=== PATIENT | male | born 1945 | race Caucasian/White ===

== ENCOUNTER 2019-04-11 09:38 | Emergency (ER) | payer MEDICARE ==
[~2019-04-11] VITALS: Ht 177.8 cm; Wt 101.7 kg
[~2019-04-11 09:38] MED LIST: ASPI81TA52 PO; CHOL200035 PO; HYDR12.522 PO; IBUP-1984 PO; METH-603 PO; METO50TA16 PO; NOR5T PO; NORCO10T PO; SIMV-42 PO; TRAM50TA2 PO
[2019-04-11 10:49] LABS: HEMATOCRIT 47.2 % (42.0-52.0); HEMOGLOBIN 15.1 g/dl (14.0-17.9); MEAN CORPUSCULAR HEMOGLOBIN 27.1 PG (27.0-31.0); MEAN CORPUSCULAR HGB CONC 32.1 g/dL (33.0-36.5); MEAN CORPUSCULAR VOLUME 84.4 FL (78-98); PLATELET COUNT 233 X10'3 (140-440); RED CELL DISTRIBUTION WIDTH 16.5 % (11.5-14.5); WHITE BLOOD COUNT 5.1 X10'3 (4.5-11.0)
[2019-04-11 10:50] LABS: BASOPHILS % (AUTO) 0.7 % (0-1); EOSINOPHILS % (AUTO) 0.4 % (0-6); LYMPHOCYTES # (AUTO) 0.5 X10'3 (1.1-4.8); LYMPHOCYTES % (AUTO) 9.3 % (21-51); MEAN PLATELET VOLUME 8.5 FL (7.4-10.4); MONOCYTES # (AUTO) 0.5 X10'3 (0-0.9); MONOCYTES % (AUTO) 10.3 % (2-12); NEUTROPHILS % (AUTO) 79.3 % (42-75)
[2019-04-11 10:52] LABS: ALANINE AMINOTRANSFERASE 27 U/L (12-78); ALBUMIN 3.6 G/DL (3.4-5.0); ALKALINE PHOSPHATASE 83 IU/L (46-116); ANION GAP 8 (8-16); ASPARTATE AMINO TRANSFERASE 25 U/L (10-37); BLOOD UREA NITROGEN 21 MG/DL (7-18); CALCIUM 8.6 MG/DL (8.5-10.1); CHLORIDE 96 MMOL/L (99-107); CREATININE 1.31 MG/DL (0.60-1.10); GLUCOSE 100 MG/DL (70-104); POTASSIUM 3.6 MMOL/L (3.5-5.1); SODIUM 132 MMOL/L (135-145); TOTAL PROTEIN 7.2 G/DL (6.4-8.2); eGFR 53 ML/MIN
[2019-04-11] MEDS ORDERED: furosemide 10 MG/1 ML 10ml inj IV ONE (11:50)
[2019-04-11] MEDS ORDERED: FURO80TA87 PO (11:55)
[2019-04-11 12:31] VITALS: BP 156/92
--- NOTE | 2019-04-11 12:39 | NUR ---
Pt refusing admit to hospital. Dr. Mederos at bedside discussing POC and DC for pt.
== END 2019-04-11 13:01 | disposition home or self-care (01) ==
LOC: ER 09:40
DX: I11.0 Hypertensive heart disease with heart failure (principal); I50.23 Acute on chronic systolic (congestive) heart failure; G89.29 Other chronic pain; Z95.1 Presence of aortocoronary bypass graft; Z98.890 Other specified postprocedural states; Z88.8 Allergy status to other drugs, medicaments and biological substances; Z79.82 Long term (current) use of aspirin; Z79.899 Other long term (current) drug therapy
CPT/HCPCS: 36415; 71045; 80053; 84484; 85025; 93005; 96374; 99284; J1940

== ENCOUNTER 2019-05-29 14:14 | Inpatient (IN) | payer MEDICARE, OTHER ==
[~2019-05-29] VITALS: Ht 175.3 cm; Wt 95.6 kg
[2019-05-29 15:03] LABS: BASOPHILS % (AUTO) 0.7 % (0-1); EOSINOPHILS % (AUTO) 0.7 % (0-6); HEMATOCRIT 49.4 % (42.0-52.0); HEMOGLOBIN 15.5 g/dl (14.0-17.9); LYMPHOCYTES # (AUTO) 0.7 X10'3 (1.1-4.8); LYMPHOCYTES % (AUTO) 12.5 % (21-51); MEAN CORPUSCULAR HEMOGLOBIN 24.6 PG (27.0-31.0); MEAN CORPUSCULAR HGB CONC 31.4 g/dL (33.0-36.5); MEAN CORPUSCULAR VOLUME 78.3 FL (78-98); MEAN PLATELET VOLUME 8.6 FL (7.4-10.4); MONOCYTES # (AUTO) 0.7 X10'3 (0-0.9); MONOCYTES % (AUTO) 12.4 % (2-12); NEUTROPHILS # (AUTO) 4.1 X10'3 (1.8-7.7); NEUTROPHILS % (AUTO) 73.7 % (42-75); PLATELET COUNT 228 X10'3 (140-440); RED BLOOD COUNT 6.31 X10'6 (4.70-6.10); RED CELL DISTRIBUTION WIDTH 18.1 % (11.5-14.5); WHITE BLOOD COUNT 5.6 X10'3 (4.5-11.0)
[2019-05-29 15:19] LABS: ALANINE AMINOTRANSFERASE 15 U/L (12-78); ALBUMIN 3.5 G/DL (3.4-5.0); ALKALINE PHOSPHATASE 91 IU/L (46-116); ANION GAP 8 (8-16); ASPARTATE AMINO TRANSFERASE 18 U/L (10-37); BILIRUBIN,TOTAL 1.2 MG/DL (0.1-1.0); BLOOD UREA NITROGEN 42 MG/DL (7-18); BUN/CREATININE RATIO 23.3 (5.4-32.0); CALCIUM 8.9 MG/DL (8.5-10.1); CHLORIDE 99 MMOL/L (99-107); GLUCOSE 115 MG/DL (70-104); POTASSIUM 3.5 MMOL/L (3.5-5.1); SODIUM 139 MMOL/L (135-145); TOTAL CARBON DIOXIDE 31.9 MMOL/L (24-32); TOTAL PROTEIN 7.1 G/DL (6.4-8.2); eGFR 37 ML/MIN
[2019-05-29] MEDS ORDERED: normal saline 1000ml 1,000 ML IV SCH (16:16)
[2019-05-29] MEDS ORDERED: ondansetron/PF 4mg/2ml inj IV PRN (16:20)
[2019-05-29] MEDS ORDERED: HYDROcodone/acetaminophen 10/325mg tab PO PRN (16:20)
[2019-05-29] MEDS ORDERED: magnesium hydroxide 30ml (MOM) UD suspension PO PRN (16:20)
[2019-05-29] MEDS ORDERED: mag hydrox/Alum hydrox/simeth 30ml oral suspension PO PRN (16:20)
[2019-05-29] MEDS ORDERED: magnesium 2GM in 50ml NS 50 ML IV PRN (16:20)
[2019-05-29] MEDS ORDERED: bisacodyl 10mg suppository rectal RC PRN (16:20)
[2019-05-29] MEDS ORDERED: HYDROcodone/acetaminophen 5mg/325mg tablet PO PRN (16:20)
[2019-05-29] MEDS ORDERED: magnesium Cl slow-release 64mg tablet PO PRN (16:20)
[2019-05-29] MEDS ORDERED: acetaminophen 650mg rectal suppository RC PRN (16:20)
[2019-05-29] MEDS ORDERED: acetaminophen 325mg tablet PO PRN ×2 (16:20)
[2019-05-29] MEDS ORDERED: potassium Cl 20 mEq SR tablet PO PRN (16:20)
[2019-05-29] MEDS ORDERED: potassium CL 10mEq/100ml bag 100 ML IV PRN ×2 (16:20)
[2019-05-29] MEDS ORDERED: magnesium 4gm in 100ml NS 100 ML IV PRN (16:20)
[2019-05-29] MEDS ORDERED: morphine 2 MG/ML inj. syringe IV PRN ×2 (16:20)
[2019-05-29] MEDS ORDERED: furosemide 10 MG/1 ML 10ml inj IV ONE (16:25)
[2019-05-29] MEDS ORDERED: SIMV10TA98 PO (16:32)
[2019-05-29] MEDS ORDERED: FURO80TA3 PO (16:32)
[2019-05-29] MEDS: levoFLOXACIN-Levaquin 750MG/D5 150 ML IV SCH (17:23)
[2019-05-29 17:45] VITALS: BP 140/87
--- NOTE | 2019-05-29 18:15 | NUR ---
Patient in room PCU 3023. I have received report from Marah NARVAEZ and had the opportunity to ask questions and assume patient care.
[2019-05-29 18:16] LABS: HEMOGLOBIN A1C 5.8 % (4.5-6.2)
--- NOTE | 2019-05-29 18:39 | NUR ---
Patient in room PCU 3023 admitted from ED. I have received report from Suni NARVAEZ and had the opportunity to ask questions and assume patient care.
--- NOTE | 2019-05-29 18:40 | NUR ---
Problems reprioritized. Patient report given, questions answered & plan of care reviewed with Patt NARVAEZ.
[2019-05-29 19:00] VITALS: BP 107/59
[2019-05-29] MEDS: ipratropium/albuterol 3ml nebule NEB SCH ×2 (19:45→23:41)
[2019-05-29 20:00] VITALS: BP_SYST 107; BP_SYST 129; BP_SYST 146; BP_DIAS 100; BP_DIAS 59; BP_DIAS 79
[2019-05-29] MEDS: K and/or MAG REPLACEMENT MC SCH (20:00)
[2019-05-29] MEDS ORDERED: temazepam 15mg capsule PO PRN (21:00)
[2019-05-29] MEDS: heparin, porcine 5000 units/ml vial SQ SCH (22:23)
[2019-05-29] MEDS: furosemide 10 MG/1 ML 10ml inj IV SCH (22:24)
[2019-05-29] MEDS ORDERED: methylPREDNISolone sod succ 125mg/2ml vial IV ONE (22:40)
[2019-05-29 23:00] VITALS: BP 135/87
[2019-05-30] MEDS: methylPREDNISolone sod succ 125mg/2ml vial IV SCH ×4 (02:26→20:55)
[2019-05-30 02:56] LABS: BASOPHILS % (AUTO) 0.3 % (0-1); EOSINOPHILS % (AUTO) 0 % (0-6); HEMATOCRIT 48.8 % (42.0-52.0); HEMOGLOBIN 15.3 g/dl (14.0-17.9); LYMPHOCYTES # (AUTO) 0.2 X10'3 (1.1-4.8); LYMPHOCYTES % (AUTO) 4.7 % (21-51); MEAN CORPUSCULAR HEMOGLOBIN 24.2 PG (27.0-31.0); MEAN CORPUSCULAR HGB CONC 31.3 g/dL (33.0-36.5); MEAN CORPUSCULAR VOLUME 77.4 FL (78-98); MEAN PLATELET VOLUME 9.3 FL (7.4-10.4); MONOCYTES # (AUTO) 0.2 X10'3 (0-0.9); NEUTROPHILS # (AUTO) 4.6 X10'3 (1.8-7.7); PLATELET COUNT 200 X10'3 (140-440); RED BLOOD COUNT 6.31 X10'6 (4.70-6.10)
[2019-05-30 03:24] LABS: ALANINE AMINOTRANSFERASE 21 U/L (12-78); ALBUMIN 3.4 G/DL (3.4-5.0); ALBUMIN/GLOBULIN RATIO 0.9 (1.1-1.5); ALKALINE PHOSPHATASE 83 IU/L (46-116); ANION GAP 11 (8-16); ASPARTATE AMINO TRANSFERASE 19 U/L (10-37); BLOOD UREA NITROGEN 44 MG/DL (7-18); BUN/CREATININE RATIO 26.2 (5.4-32.0); CALCIUM 8.9 MG/DL (8.5-10.1); CHLORIDE 100 MMOL/L (99-107); CHOL/HDL RATIO 1.7 (0.00-4.99); CHOLESTEROL 142 MG/DL (0-200); CREATININE 1.68 MG/DL (0.60-1.10); GLUCOSE 129 MG/DL (70-104); HDL CHOLESTEROL 82 MG/DL (35-60); LDL CHOLESTEROL 53 MG/DL (50-100); MAGNESIUM 1.7 MG/DL (1.5-2.4); PHOSPHORUS 3.6 MG/DL (2.3-4.5); SODIUM 139 MMOL/L (135-145); TOTAL CARBON DIOXIDE 28.5 MMOL/L (24-32); TRIGLYCERIDES 33 MG/DL (20-135); eGFR 40 ML/MIN
[2019-05-30] MEDS: potassium Cl 20 mEq SR tablet PO PRN ×4 (03:30→20:47)
--- NOTE | 2019-05-30 03:31 | NUR ---
Received Critical K+ of 3.0 administering 40meq of potassium per protocol
[2019-05-30] MEDS: ipratropium/albuterol 3ml nebule NEB SCH ×6 (03:34→23:51)
[2019-05-30 06:00] VITALS: BP 146/84
--- NOTE | 2019-05-30 06:28 | NUR ---
Patient in room PCU 3023. I have received report from Patt NARVAEZ and had the opportunity to ask questions and assume patient care.
--- NOTE | 2019-05-30 06:29 | NUR ---
Problems reprioritized. Patient report given, questions answered & plan of care reviewed with Marah NARVAEZ.
[2019-05-30] MEDS: K and/or MAG REPLACEMENT MC SCH ×2 (08:00→20:00)
[2019-05-30] MEDS: heparin, porcine 5000 units/ml vial SQ SCH ×2 (08:05→20:45)
[2019-05-30] MEDS: levoFLOXACIN-Levaquin 750MG/D5 150 ML IV SCH (08:05)
[2019-05-30] MEDS: furosemide 10 MG/1 ML 10ml inj IV SCH ×2 (08:08→20:45)
[2019-05-30] MEDS ORDERED: LOSA1TAB41 PO (09:55)
[2019-05-30 11:00] VITALS: BP 129/71
[2019-05-30] MEDS: spironolactone 25 MG tablet PO SCH (11:28)
[2019-05-30] MEDS: losartan 50mg tablet PO SCH (11:29)
[2019-05-30 15:00] VITALS: BP 133/78
--- NOTE | 2019-05-30 18:23 | NUR ---
Problems reprioritized. Patient report given, questions answered & plan of care reviewed with Patt NARVAEZ.
[2019-05-30 19:00] VITALS: BP 136/76
[2019-05-30 23:00] VITALS: BP 134/69
[2019-05-31] MEDS: methylPREDNISolone sod succ 125mg/2ml vial IV SCH ×2 (02:30→07:58)
[2019-05-31] MEDS: ipratropium/albuterol 3ml nebule NEB SCH ×3 (03:00→11:00)
[2019-05-31 06:07] LABS: BASOPHILS % (AUTO) 0 % (0-1); EOSINOPHILS % (AUTO) 0 % (0-6); HEMATOCRIT 49.2 % (42.0-52.0); HEMOGLOBIN 15.6 g/dl (14.0-17.9); LYMPHOCYTES # (AUTO) 0.2 X10'3 (1.1-4.8); LYMPHOCYTES % (AUTO) 1.6 % (21-51); MEAN CORPUSCULAR HEMOGLOBIN 24.3 PG (27.0-31.0); MEAN CORPUSCULAR HGB CONC 31.6 g/dL (33.0-36.5); MEAN PLATELET VOLUME 9.5 FL (7.4-10.4); MONOCYTES # (AUTO) 0.4 X10'3 (0-0.9); MONOCYTES % (AUTO) 3.1 % (2-12); NEUTROPHILS # (AUTO) 12.8 X10'3 (1.8-7.7); NEUTROPHILS % (AUTO) 95.3 % (42-75); PLATELET COUNT 205 X10'3 (140-440); RED BLOOD COUNT 6.39 X10'6 (4.70-6.10); RED CELL DISTRIBUTION WIDTH 18.3 % (11.5-14.5); WHITE BLOOD COUNT 13.4 X10'3 (4.5-11.0)
--- NOTE | 2019-05-31 06:39 | NUR ---
Problems reprioritized. Patient report given, questions answered & plan of care reviewed with Kath NARVAEZ.
[2019-05-31 06:51] LABS: ALANINE AMINOTRANSFERASE 21 U/L (12-78); ALBUMIN 3.6 G/DL (3.4-5.0); ALKALINE PHOSPHATASE 78 IU/L (46-116); ANION GAP 14 (8-16); ASPARTATE AMINO TRANSFERASE 21 U/L (10-37); BLOOD UREA NITROGEN 50 MG/DL (7-18); BUN/CREATININE RATIO 26.9 (5.4-32.0); CALCIUM 9.3 MG/DL (8.5-10.1); CHLORIDE 100 MMOL/L (99-107); CREATININE 1.86 MG/DL (0.60-1.10); GLUCOSE 145 MG/DL (70-104); MAGNESIUM 1.8 MG/DL (1.5-2.4); PHOSPHORUS 3.4 MG/DL (2.3-4.5); SODIUM 138 MMOL/L (135-145); TOTAL CARBON DIOXIDE 23.6 MMOL/L (24-32); TOTAL PROTEIN 7.2 G/DL (6.4-8.2); eGFR 35 ML/MIN
[2019-05-31 07:00] VITALS: BP 140/77
[2019-05-31] MEDS: losartan 50mg tablet PO SCH (07:58)
[2019-05-31] MEDS: spironolactone 25 MG tablet PO SCH (07:58)
[2019-05-31] MEDS: furosemide 10 MG/1 ML 10ml inj IV SCH (07:58)
[2019-05-31] MEDS: levoFLOXACIN-Levaquin 750MG/D5 150 ML IV SCH (07:58)
[2019-05-31] MEDS: heparin, porcine 5000 units/ml vial SQ SCH (07:59)
[2019-05-31] MEDS: K and/or MAG REPLACEMENT MC SCH (08:00)
[2019-05-31] MEDS ORDERED: ALBU8.5H8 INH (09:51)
[2019-05-31] MEDS ORDERED: LOSA50TA64 PO (09:51)
[2019-05-31] MEDS ORDERED: FURO-150 PO (09:51)
[2019-05-31] MEDS ORDERED: SPIR25TA PO (09:51)
[2019-05-31] MEDS ORDERED: PRED10TA23 PO (09:51)
[2019-05-31] MEDS ORDERED: LEVO500T89 PO (09:51)
[2019-05-31] MEDS ORDERED: CARV3.12 PO (09:52)
[2019-05-31 11:00] VITALS: BP 163/77
--- NOTE | 2019-05-31 12:37 | NUR ---
Patient was discharged home with . Patient reviewed packet before signing and being sent home with patient. All other belongings sent home with patient, telemetry monitoring removed, PIV d/c'd with cannula intact,Rx were faxed to pharmacy. Patient stable upon discharge, and wheeled down by staff, left via private vehicle. Addendum: 05/31/19 at 1242 by Kath Loera RN Patient has scheduled Dr. wooten with Dr. Salmon for CHF on 06/04/19
--- NOTE | 2019-06-02 08:45 | NUR ---
Case management DC follow up: spoke to pt & pt spouse. report pt,"doing fine", "feeling better. No wheezing and no cough" ,"able to sleep". Denies emergent SOB, resp distress, cp, acute general pain, BLE pain (existing edema/denies worsening), denies NV, CULP, dizziness. verbalizes understanding of meds and why prescribed, taking as ordered, no ase noted r/t polypharmacy. acknowledges follow up appt w/Dr Salmon 06/04/2019/1115. pt is compliant at this time w/fluid restriction. Advised to elevate BLE whenever possible, verbalizes understanding, activity as tolerated. PCP/aldo will call back w/appt date. verbalizes understanding of s/s that would warrant -/ER visit for evaluation. needs met, questions answered at DC. no further questions at this time.
== END 2019-05-31 12:35 | disposition home or self-care (01) | DRG 291 ==
LOC: ER 14:14 → ED HOLD 16:16 → EDBEDREQ 16:53 → PCU 3S 17:50
PROVIDERS: ADMIT Family Medicine; ATTEND Family Medicine
DX: I13.0 Hypertensive heart and chronic kidney disease with heart failure and stage 1 through stage 4 chronic kidney disease, or unspecified chronic kidney disease (principal); I50.21 Acute systolic (congestive) heart failure; J18.9 Pneumonia, unspecified organism; J96.90 Respiratory failure, unspecified, unspecified whether with hypoxia or hypercapnia; J44.0 Chronic obstructive pulmonary disease with (acute) lower respiratory infection; J44.1 Chronic obstructive pulmonary disease with (acute) exacerbation; E78.5 Hyperlipidemia, unspecified; I42.6 Alcoholic cardiomyopathy; F10.20 Alcohol dependence, uncomplicated; M54.9 Dorsalgia, unspecified; E87.6 Hypokalemia; G89.4 Chronic pain syndrome; I25.10 Atherosclerotic heart disease of native coronary artery without angina pectoris; N18.9 Chronic kidney disease, unspecified; Z79.899 Other long term (current) drug therapy; Z80.1 Family history of malignant neoplasm of trachea, bronchus and lung; Z87.891 Personal history of nicotine dependence; Z95.1 Presence of aortocoronary bypass graft; Z88.8 Allergy status to other drugs, medicaments and biological substances
CPT/HCPCS: 36415; 71045; 80053; 80061; 83036; 83735; 83880; 84100; 84484; 85025; 93005; 93306; 94640; 94760; 97116; 97162; 97530; 99285; G0378; J1644; J1940; J1956; J2930

== ENCOUNTER 2019-06-24 08:46 | Emergency (ER) | payer MEDICARE, OTHER ==
[~2019-06-24] VITALS: Ht 175.3 cm; Wt 95.0 kg
[~2019-06-24 08:46] MED LIST changes: +ALBU8.5H8 INH; +CARV3.12 PO; -CHOL200035 PO; +FURO-150 PO; -HYDR12.522 PO; -IBUP-1984 PO; +LEVO500T89 PO; +LOSA50TA64 PO; -METO50TA16 PO; -NORCO10T PO; +PRED10TA23 PO; -SIMV-42 PO; +SIMV10TA98 PO; +SPIR25TA PO
[2019-06-24] MEDS ORDERED: ketorolac trometh. 30mg/ml inj. IM ONE (09:30)
[2019-06-24 10:14] VITALS: BP 128/69
== END 2019-06-24 11:02 | disposition home or self-care (01) ==
LOC: ER 08:46
DX: S20.212A Contusion of left front wall of thorax, initial encounter (principal); I10 Essential (primary) hypertension; G89.29 Other chronic pain; Z95.1 Presence of aortocoronary bypass graft; Z98.890 Other specified postprocedural states; Z79.82 Long term (current) use of aspirin; Z79.899 Other long term (current) drug therapy; W22.8XXA Striking against or struck by other objects, initial encounter; Y93.89 Activity, other specified; Y92.410 Unspecified street and highway as the place of occurrence of the external cause; Y99.8 Other external cause status
CPT/HCPCS: 71045; 96372; 99283; J1885

== ENCOUNTER 2019-09-18 08:38 | Day surgery (SDC) | payer MEDICARE, OTHER ==
[~2019-09-18] VITALS: Ht 175.3 cm; Wt 88.7 kg
[2019-09-18] VITALS (16 sets, daily range): BP systolic 104–132; BP diastolic 50–78
[~2019-09-18 08:38] MED LIST changes: -FURO-150 PO; -LEVO500T89 PO; -PRED10TA23 PO
[2019-09-18] MEDS ORDERED: PRED10TA PO (09:50)
[2019-09-18] MEDS ORDERED: POTA10TA PO (09:54)
[2019-09-18] MEDS ORDERED: AMLO10TA13 PO (09:54)
[2019-09-18] MEDS ORDERED: TORS20TA3 PO (09:54)
[2019-09-18 09:55] LABS: BASOPHILS # (AUTO) 0.1 X10'3 (0-0.2); BASOPHILS % (AUTO) 1.5 % (0-1); EOSINOPHILS # (AUTO) 0.1 X10'3 (0-0.9); EOSINOPHILS % (AUTO) 1.2 % (0-6); HEMATOCRIT 50.9 % (42.0-52.0); HEMOGLOBIN 14.7 g/dl (14.0-17.9); LYMPHOCYTES # (AUTO) 0.7 X10'3 (1.1-4.8); LYMPHOCYTES % (AUTO) 15.4 % (21-51); MEAN CORPUSCULAR HEMOGLOBIN 21.2 PG (27.0-31.0); MEAN CORPUSCULAR HGB CONC 28.9 g/dL (33.0-36.5); MEAN CORPUSCULAR VOLUME 73.2 FL (78-98); MONOCYTES # (AUTO) 0.6 X10'3 (0-0.9); MONOCYTES % (AUTO) 14.4 % (2-12); NEUTROPHILS # (AUTO) 2.9 X10'3 (1.8-7.7); NEUTROPHILS % (AUTO) 67.5 % (42-75); PLATELET COUNT 249 X10'3 (140-440); RED BLOOD COUNT 6.95 X10'6 (4.70-6.10); RED CELL DISTRIBUTION WIDTH 25.9 % (11.5-14.5); WHITE BLOOD COUNT 4.2 X10'3 (4.5-11.0)
[2019-09-18 10:53] LABS: PLATELET ESTIMATE NORMAL
[2019-09-18 10:55] LABS: ANISOCYTOSIS 3+; ELLIPTOCYTES 1+; HYPOCHROMASIA 1+; MICROCYTOSIS 1+; POLYCHROMASIA 1+; TARGET CELLS FEW
[2019-09-18] MEDS ORDERED: normal saline 1000ml 1,000 ML IV SCH (11:16)
[2019-09-18] MEDS ORDERED: midazolam 2 mg/2 ml injection ONE (11:16)
[2019-09-18] MEDS ORDERED: fentaNYL/PF 50MCG/1 ML 2ML syringe ONE (11:17)
== END 2019-09-18 15:15 | disposition home or self-care (01) ==
LOC: SSTAY O 08:38
PROVIDERS: ATTEND Radiology Diagnostic Radiology
DX: K76.89 Other specified diseases of liver (principal); C22.7 Other specified carcinomas of liver; R91.8 Other nonspecific abnormal finding of lung field; G89.29 Other chronic pain; I11.0 Hypertensive heart disease with heart failure; I50.9 Heart failure, unspecified; Z95.1 Presence of aortocoronary bypass graft; Z88.8 Allergy status to other drugs, medicaments and biological substances; Z79.899 Other long term (current) drug therapy; Z79.82 Long term (current) use of aspirin; Z98.890 Other specified postprocedural states; Z11.59 Encounter for screening for other viral diseases
CPT/HCPCS: 36415; 47000; 77012; 85025; 88341; 88342; 99152; 99153; J2250; J3010; U0003; 88305

== ENCOUNTER 2019-10-05 12:18 | Emergency (ER) | payer MEDICARE, OTHER ==
[~2019-10-05] VITALS: Ht 175.3 cm; Wt 80.9 kg
[~2019-10-05 12:18] MED LIST changes: -ALBU8.5H8 INH; +AMLO10TA13 PO; +POTA10TA PO; +PRED10TA PO; +TORS20TA3 PO
--- NOTE | 2019-10-05 14:07 | NUR ---
pt followed by wound care. Received steroid injection, back, 1 wk ago.
[2019-10-05] MEDS ORDERED: ondansetron/PF 4mg/2ml inj IV ONE (14:20)
[2019-10-05] MEDS: morphine 4 MG/ML inj SYRINge IV PRN ×2 (14:53→17:05)
[2019-10-05 14:55] LABS: BASOPHILS % (AUTO) 0.4 % (0-1); EOSINOPHILS % (AUTO) 0.3 % (0-6); LYMPHOCYTES # (AUTO) 0.4 X10'3 (1.1-4.8); LYMPHOCYTES % (AUTO) 4.8 % (21-51); MEAN PLATELET VOLUME 9.7 FL (7.4-10.4); MONOCYTES # (AUTO) 0.6 X10'3 (0-0.9); MONOCYTES % (AUTO) 7.5 % (2-12); NEUTROPHILS # (AUTO) 7.4 X10'3 (1.8-7.7); PLATELET COUNT 184 X10'3 (140-440); WHITE BLOOD COUNT 8.5 X10'3 (4.5-11.0)
--- NOTE | 2019-10-05 15:11 | NUR ---
pT BACK FROM CT, PLACED ON 2L NC DUE TO O2 AT 90%,
[2019-10-05 15:16] LABS: ANION GAP 6 (8-16); BLOOD UREA NITROGEN 81 MG/DL (7-18); BUN/CREATININE RATIO 37.3 (5.4-32.0); CALCIUM 9.3 MG/DL (8.5-10.1); CHLORIDE 103 MMOL/L (99-107); CREATININE 2.17 MG/DL (0.60-1.10); GLUCOSE 80 MG/DL (70-104); POTASSIUM 4.9 MMOL/L (3.5-5.1); SODIUM 139 MMOL/L (135-145); TOTAL CARBON DIOXIDE 30.1 MMOL/L (24-32); eGFR 30 ML/MIN
[2019-10-05 15:17] LABS: ALANINE AMINOTRANSFERASE 21 U/L (12-78); ALBUMIN 3.1 G/DL (3.4-5.0); ALKALINE PHOSPHATASE 96 IU/L (46-116); ASPARTATE AMINO TRANSFERASE 19 U/L (10-37); BILIRUBIN,TOTAL 2.2 MG/DL (0.1-1.0); TOTAL PROTEIN 6.1 G/DL (6.4-8.2)
[2019-10-05 15:56] LABS: HEMOGLOBIN 15.6 g/dl (14.0-17.9); RED BLOOD COUNT 7.19 X10'6 (4.70-6.10)
[2019-10-05 15:57] LABS: MEAN CORPUSCULAR HEMOGLOBIN 21.6 PG (27.0-31.0); MEAN CORPUSCULAR HGB CONC 29.3 g/dL (33.0-36.5); MEAN CORPUSCULAR VOLUME 73.8 FL (78-98); RED CELL DISTRIBUTION WIDTH 25.6 % (11.5-14.5)
--- NOTE | 2019-10-05 15:59 | NUR ---
discussed pt's pain w/ edmd baldwin; new order received.
[2019-10-05] MEDS ORDERED: morphine 4 MG/ML inj SYRINge IV ONE (16:00)
[2019-10-05 16:05] LABS: NUCLEATED RED BLOOD CELLS 2 /100WBC (0-0); TOTAL CELLS COUNTED 100
[2019-10-05 16:06] LABS: ANISOCYTOSIS 3+; MICROCYTOSIS 1+; PLATELET ESTIMATE NORMAL
[2019-10-05 16:07] LABS: ELLIPTOCYTES 1+; GIANT PLATELET FEW; HYPOCHROMASIA 1+; POLYCHROMASIA 1+
[2019-10-05 16:08] LABS: LARGE PLATELETS FEW
[2019-10-05 16:17] LABS: CLARITY,URINE CLEAR (Clear); COLOR,URINE YELLOW (Yellow); GLUCOSE, URINE NEGATIVE (Neg); KETONES,URINE NEGATIVE (Neg); LEUKOCYTE ESTERASE ,URINE NEGATIVE (Neg); NITRITES, URINE NEGATIVE (Neg); OCCULT BLOOD,URINE TRACE-INTACT (Neg); PROTEIN,URINE 30 mg/dl (Neg); UROBILINOGEN,URINE 0.2 E.U/dL (0.2-1.0)
[2019-10-05 16:23] LABS: UA COLLECTION TYPE STRAIGHT CATH
[2019-10-05 16:26] LABS: BACTERIA,URINE NONE SEEN /HPF (Neg); WBC,URINE 0-4 /HPF (0-4)
[2019-10-05 16:27] LABS: SQUAMOUS EPITHELIAL CELL,UR FEW /LPF (FEW)
[2019-10-05 16:28] LABS: HYALINE CASTS 0-3 /LPF (NEGATIVE); MUCUS STRANDS NONE SEEN /LPF (Neg); TRANSITIONAL EPI CELLS,URINE FEW /HPF
[2019-10-05] MEDS ORDERED: normal saline 1000ML IV soln IVB ONE (16:50)
--- NOTE | 2019-10-05 18:39 | NUR ---
ATTEMPTED TO CALL REPORT TO [facility]. PER CN, PATIENT HAS NOT BEEN ASSIGNED TO A NOC NURSE AT THIS TIME. REQUESTED TO CALL BACK REPORT IN 30MINS. [facility] CN MADE AWARE. PT IS CURRENTLY STABLE AT THIS TIME.
--- NOTE | 2019-10-05 18:45 | NUR ---
PT HAS THE FOLLOWING BELONGINGS AT BEDSIDE AND WILL ACCOMPANY PT DURING HIS TRANSPORT TO [facility] - [facility]. PANTS, SHIRT, SHOES, MEDICATIONS, CELL PHONE WITH NO DIRECTOR OF SERVICES.
--- NOTE | 2019-10-05 19:00 | NUR ---
ATTEMPTED TO CALL REPORT AGAIN TO [facility] DUE TO TRANSPORT EMS AT BEDSIDE EARLY. WAS TOLD BY DAY BEDSIDE RN @ [phone] THAT PT TRANSPORT NEEDS TO BE DELAYED AT [facility] DUE TO SHIFT CHANGE; ACUTE CARE STAFF REFUSED TO TAKE REPORT EVEN THOUGH PT HAD BEEN ACCEPTED TO THEIR UNIT. CHARGE NURSE NORMA MADE AWARE AND NSG [facility] [employer] COORDINATOR AT [facility] HAS BEEN INFORMED TO RECEIVE REPORT.
[2019-10-05] MEDS ORDERED: fentaNYL/PF 50MCG/1 ML 2ML syringe IV ONE (19:10)
[2019-10-05 20:01] VITALS: BP 113/61
== END 2019-10-05 19:25 | disposition short-term general hospital (02) ==
LOC: ER 12:18
DX: R53.1 Weakness (principal); R60.0 Localized edema; N18.9 Chronic kidney disease, unspecified; I12.9 Hypertensive chronic kidney disease with stage 1 through stage 4 chronic kidney disease, or unspecified chronic kidney disease; G89.29 Other chronic pain; Z95.1 Presence of aortocoronary bypass graft; Z98.890 Other specified postprocedural states; Z88.8 Allergy status to other drugs, medicaments and biological substances; Z79.82 Long term (current) use of aspirin; Z79.899 Other long term (current) drug therapy
CPT/HCPCS: 36415; 72131; 80053; 81001; 83605; 84145; 85025; 85651; 87040; 93971; 96374; 96375; 96376; 99285; J2270; J2405; J3010; J7030